=== PATIENT | male | born 1940 | race African-American/Black ===

== ENCOUNTER 2020-05-28 15:43 | Inpatient (IN) ==
[2020-05-28] MEDS ORDERED: SODIUM CHLORIDE 0.9% 1,000 ML IV STA (16:20)
[2020-05-28 16:43] LABS: Basophils % 0.4 % (0.0-0.8); Eosinophils % 0.2 % (0.00-10.9); Hematocrit 39.1 VOL% (42.0-52.0); Hemoglobin 12.6 GM/DL (14.0-18.0); Immature Granulocytes % 0.4 %; Immature Granulocytes Absolute 0.02 #; Lymphocytes # 1.4 10*3/uL (1.4-4.0); Lymphocytes % 24.2 % (21.2-54.2); Mean Corpuscular HGB Conc 32.2 GM/DL (32-36); Mean Corpuscular Volume 87.5 FL (87-102); Mean Platelet Volume 10.7 FL (9.6-12.0); Monocytes % 7.1 % (1.7-12.7); Neutrophils % 67.7 % (38.7-73.9); Platelet Count 218 T/CUMM (130-400); Red Blood Count 4.47 MC/CUMM (3.8-5.5); Red Cell Distribution Width 15.4 % (9.3-17.3); White Blood Count 5.7 T/CUMM (4-12)
[2020-05-28 16:50] LABS: INR 1.2; PT Patient Result 13.1 SECS (9.8-11.9); Partial Thromboplastin Time 26.5 SECS (23.9-33.8)
[2020-05-28 17:05] LABS: Albumin 3.5 G/DL (3.4-5.0); Bilirubin,Total 0.8 MG/DL (0.2-1.0); Calcium 9.2 MG/DL (8.5-10.1); Osmolality,Calculated 315.9 MOS/KG (273-304)
[2020-05-28] MEDS ORDERED: LORazepam 2 MG/1 ML VIAL IV STA (17:29)
[2020-05-28] MEDS ORDERED: LORazepam 2 MG/1 ML VIAL ONE (17:30)
[2020-05-28] MEDS ORDERED: HALOPERIDOL 5 MG/ML AMP IM STA ×2 (17:45→19:57)
[2020-05-28 18:00] LABS: Bilirubin,Urine Negative (Negative); Blood, Urine Large mg/dL (Negative); Glucose,Urine (UA) Negative (Negative); Hyaline Casts,Urine 6 /LPF (0-3); Ketones,Urine 20 mg/dL (Negative); Mucus,Urine Occasional /LPF (Occasional); Nitrite,Urine Negative (Negative); Protein,Urine 100 MG/DL; RBC,Urine 1893 /HPF (0-4); Squamous Epithelial Cell,Urine Occasional /HPF (0-10); Urine Appearance Slightly Hazy (Clear); Urine Color Amber (Yellow); Urine Specific Gravity 1.025 (1.001-1.035)
[2020-05-28] MEDS ORDERED: POTASSIUM CHLORIDE INJ 10 MEQ in SODIUM CHLORIDE 0.45% 1,000 ML IV SCH (18:30)
[2020-05-28] MEDS ORDERED: GLUCAGON 1 MG VIAL IM PRN (18:47)
[2020-05-28] MEDS ORDERED: DEXTROSE 50% 25 GM/50 ML VIAL IV PRN (18:47)
[2020-05-28] MEDS ORDERED: DEXTROSE 5% 1,000 ML IV SCH (19:00)
[2020-05-28] MEDS ORDERED: ENOXAPARIN 40 MG/0.4 ML SYRINGE SUBCUT SCH (21:00)
[2020-05-28] MEDS: BENZTROPINE 0.5 MG TABLET PO SCH ×2 (23:25→23:30)
[2020-05-28] MEDS: busPIRone 5 MG TABLET PO SCH ×2 (23:25→23:29)
[2020-05-29] MEDS ORDERED: INFLUENZA VIRUS VACCINE 0.5 ML SYRINGE IM ONE (00:47)
[2020-05-29 05:45] LABS: Basophils % 0.3 % (0.0-0.8); Hematocrit 44.3 VOL% (42.0-52.0); Hemoglobin 14.1 GM/DL (14.0-18.0); Immature Granulocytes % 0.3 %; Immature Granulocytes Absolute 0.03 #; Lymphocytes # 1.6 10*3/uL (1.4-4.0); Lymphocytes % 14.1 % (21.2-54.2); Mean Corpuscular HGB Conc 31.8 GM/DL (32-36); Mean Corpuscular Volume 89.1 FL (87-102); Mean Platelet Volume 10.8 FL (9.6-12.0); Monocytes % 5.9 % (1.7-12.7); Neutrophils % 79.4 % (38.7-73.9); Platelet Count 192 T/CUMM (130-400); Red Blood Count 4.97 MC/CUMM (3.8-5.5); Red Cell Distribution Width 15.4 % (9.3-17.3); White Blood Count 11.1 T/CUMM (4-12)
[2020-05-29 05:54] LABS: Calcium 9.5 MG/DL (8.5-10.1); Osmolality,Calculated 314.2 MOS/KG (273-304)
[2020-05-29] MEDS: DEXTROSE 5% 1,000 ML IV SCH ×2 (10:12→21:23)
[2020-05-29] MEDS: busPIRone 5 MG TABLET PO SCH ×2 (10:12→21:24)
[2020-05-29] MEDS: QUEtiapine XR 50 MG TABLET PO SCH (10:12)
[2020-05-29] MEDS: BENZTROPINE 0.5 MG TABLET PO SCH ×2 (10:12→21:24)
[2020-05-29] MEDS ORDERED: METOPROLOL TARTRATE 5 MG/5 ML VIAL IV ONE (10:17)
[2020-05-29] MEDS ORDERED: TUBERCULIN SKIN TEST 0.1 ML SYRINGE INTRADERM ONE (10:19)
[2020-05-29] MEDS: HALOPERIDOL 5 MG/ML AMP IV PRN ×2 (10:37→17:33)
[2020-05-29] MEDS ORDERED: LORazepam 2 MG/1 ML VIAL IV ONE ×2 (12:50→23:10)
[2020-05-29] MEDS ORDERED: HALOPERIDOL 5 MG/ML AMP IV ONE (12:51)
[2020-05-29] MEDS ORDERED: diphenhydrAMINE 50 MG/1 ML VIAL IV ONE (12:51)
[2020-05-29] MEDS: NICOTINE 21 MG/24 HR PATCH TRANSDERM SCH (12:57)
[2020-05-29] MEDS: cefTRIAXone 1,000 MG in SYRINGE 1 EACH IV SCH (21:24)
[2020-05-30] MEDS: hydrALAZINE 20 MG/1 ML VIAL IV PRN (03:43)
[2020-05-30] MEDS: HALOPERIDOL 5 MG/ML AMP IV PRN (03:45)
[2020-05-30 05:59] LABS: Basophils % 0.3 % (0.0-0.8); Eosinophils % 0.4 % (0.00-10.9); Hematocrit 41.8 VOL% (42.0-52.0); Hemoglobin 13.7 GM/DL (14.0-18.0); Immature Granulocytes % 0.5 %; Immature Granulocytes Absolute 0.04 #; Lymphocytes # 1.6 10*3/uL (1.4-4.0); Mean Corpuscular HGB Conc 32.8 GM/DL (32-36); Mean Corpuscular Volume 86.9 FL (87-102); Mean Platelet Volume 10.8 FL (9.6-12.0); Monocytes % 5.5 % (1.7-12.7); Neutrophils % 72.3 % (38.7-73.9); Platelet Count 148 T/CUMM (130-400); Red Blood Count 4.81 MC/CUMM (3.8-5.5); Red Cell Distribution Width 15.1 % (9.3-17.3); White Blood Count 7.7 T/CUMM (4-12)
[2020-05-30 06:12] LABS: Calcium 9.6 MG/DL (8.5-10.1); Osmolality,Calculated 296.3 MOS/KG (273-304)
[2020-05-30] MEDS: POTASSIUM CHLORIDE RIDER 10 MEQ in PREMIX 1 EACH IV PRN (07:36)
[2020-05-30] MEDS: BENZTROPINE 0.5 MG TABLET PO SCH ×2 (08:38→21:17)
[2020-05-30] MEDS: busPIRone 5 MG TABLET PO SCH ×2 (08:38→21:17)
[2020-05-30] MEDS: THIAMINE 100 MG TABLET PO SCH (08:38)
[2020-05-30] MEDS: NICOTINE 21 MG/24 HR PATCH TRANSDERM SCH (08:39)
[2020-05-30] MEDS: MULTIVITAMIN LIQUID (CENTRUM) 60 ML BOTTLE NG SCH (08:40)
[2020-05-30] MEDS: QUEtiapine XR 50 MG TABLET PO SCH (08:40)
[2020-05-30] MEDS: QUEtiapine 100 MG TABLET PO SCH (08:54)
[2020-05-30] MEDS ORDERED: POTASSIUM PHOSPHATE 30 MMOL in SODIUM CHLORIDE 0.9% 250 ML IV ONE (09:30)
[2020-05-30] MEDS: DEXTROSE 5% 1,000 ML IV SCH ×2 (10:44→17:01)
[2020-05-30] MEDS: cefTRIAXone 1,000 MG in SYRINGE 1 EACH IV SCH (21:18)
[2020-05-31 06:06] LABS: Basophils % 0.2 % (0.0-0.8); Eosinophils % 0.6 % (0.00-10.9); Hematocrit 35.4 VOL% (42.0-52.0); Hemoglobin 11.8 GM/DL (14.0-18.0); INR 1.1; Immature Granulocytes % 0.5 %; Immature Granulocytes Absolute 0.03 #; Lymphocytes # 1.9 10*3/uL (1.4-4.0); Lymphocytes % 28.9 % (21.2-54.2); Mean Corpuscular HGB Conc 33.3 GM/DL (32-36); Mean Corpuscular Volume 85.1 FL (87-102); Mean Platelet Volume 11.5 FL (9.6-12.0); Monocytes % 6.9 % (1.7-12.7); Neutrophils % 62.9 % (38.7-73.9); PT Patient Result 11.4 SECS (9.8-11.9); Platelet Count 112 T/CUMM (130-400); Red Blood Count 4.16 MC/CUMM (3.8-5.5); Red Cell Distribution Width 14.6 % (9.3-17.3); White Blood Count 6.5 T/CUMM (4-12)
[2020-05-31 06:22] LABS: Calcium 8.5 MG/DL (8.5-10.1)
[2020-05-31 06:32] LABS: Hypochromasia 1+; Microcytosis 1+; Platelet Estimate Decreased
[2020-05-31] MEDS: POTASSIUM CHLORIDE RIDER 10 MEQ in PREMIX 1 EACH IV PRN ×2 (07:58→17:23)
[2020-05-31] MEDS ORDERED: LACTATED RINGERS 1,000 ML IV SCH (08:00)
[2020-05-31] MEDS ORDERED: LIDOCAINE 2% 5 ML VIAL ONE (09:00)
[2020-05-31] MEDS ORDERED: propofoL 200 MG/20 ML VIAL IV ONE (09:00)
[2020-05-31] MEDS ORDERED: PHENYLEPHRINE 1 MG/10 ML SYRINGE IV ONE (09:00)
[2020-05-31] MEDS: BENZTROPINE 0.5 MG TABLET PO SCH ×2 (09:30→22:12)
[2020-05-31] MEDS: busPIRone 5 MG TABLET PO SCH ×2 (09:30→22:11)
[2020-05-31] MEDS: THIAMINE 100 MG TABLET PO SCH (09:30)
[2020-05-31] MEDS: QUEtiapine 100 MG TABLET PO SCH (09:30)
[2020-05-31] MEDS: NICOTINE 21 MG/24 HR PATCH TRANSDERM SCH (09:31)
[2020-05-31] MEDS: POTASSIUM CHLORIDE RIDER 10 MEQ in PREMIX 1 EACH IV SCH ×3 (09:31→14:45)
[2020-05-31] MEDS: DEXTROSE 5% 1,000 ML IV SCH ×2 (12:06→22:20)
[2020-05-31] MEDS: MULTIVITAMIN LIQUID (CENTRUM) 60 ML BOTTLE NG SCH (13:43)
[2020-05-31] MEDS: HALOPERIDOL 5 MG/ML AMP IV PRN (19:53)
[2020-05-31] MEDS: cefTRIAXone 1,000 MG in SYRINGE 1 EACH IV SCH (22:10)
[2020-06-01] MEDS: HALOPERIDOL 5 MG/ML AMP IV PRN ×2 (04:10→21:08)
[2020-06-01 06:19] LABS: Calcium 9.2 MG/DL (8.5-10.1); Osmolality,Calculated 273.7 MOS/KG (273-304)
[2020-06-01 07:06] LABS: Basophils % 0.4 % (0.0-0.8); Eosinophils # 0.1 10*3/uL (0.0-0.87); Hematocrit 33.3 VOL% (42.0-52.0); Hemoglobin 11.3 GM/DL (14.0-18.0); Immature Granulocytes % 0.4 %; Immature Granulocytes Absolute 0.02 #; Lymphocytes # 1.5 10*3/uL (1.4-4.0); Lymphocytes % 30.3 % (21.2-54.2); Mean Corpuscular HGB Conc 33.9 GM/DL (32-36); Mean Corpuscular Volume 83.7 FL (87-102); Mean Platelet Volume 11.5 FL (9.6-12.0); Monocytes % 7.5 % (1.7-12.7); Neutrophils % 60.4 % (38.7-73.9); Platelet Count 98 T/CUMM (130-400); Red Blood Count 3.98 MC/CUMM (3.8-5.5); Red Cell Distribution Width 14.5 % (9.3-17.3); White Blood Count 5.1 T/CUMM (4-12)
[2020-06-01 07:46] LABS: Polychromasia Slight; Schistocytes Few
[2020-06-01 07:47] LABS: Ovalocytes Few; Platelet Estimate Adequate
[2020-06-01 07:48] LABS: Hypochromasia 3+; Microcytosis 1+
[2020-06-01] MEDS ORDERED: POTASSIUM CHLORIDE 20 MEQ/15 ML UDCUP PO ONE ×2 (08:00→13:30)
[2020-06-01] MEDS: busPIRone 5 MG TABLET PO SCH ×2 (08:18→21:07)
[2020-06-01] MEDS: QUEtiapine 100 MG TABLET PO SCH (09:59)
[2020-06-01] MEDS: NICOTINE 21 MG/24 HR PATCH TRANSDERM SCH (10:00)
[2020-06-01] MEDS: THIAMINE 100 MG TABLET PO SCH (10:00)
[2020-06-01] MEDS: BENZTROPINE 0.5 MG TABLET PO SCH ×2 (10:00→21:08)
[2020-06-01] MEDS: MULTIVITAMIN LIQUID (CENTRUM) 60 ML BOTTLE NG SCH (10:40)
[2020-06-01] MEDS: DEXTROSE 5% 1,000 ML IV SCH (13:16)
[2020-06-01] MEDS ORDERED: ZIPRASIDONE 20 MG/1 ML VIAL IM ONE (19:12)
[2020-06-01] MEDS: cefTRIAXone 1,000 MG in SYRINGE 1 EACH IV SCH (21:05)
[2020-06-01] MEDS: POTASSIUM CHLORIDE 20 MEQ/15 ML UDCUP PO SCH (21:07)
[2020-06-02] MEDS ORDERED: ZIPRASIDONE 20 MG/1 ML VIAL IM PRN (01:06)
[2020-06-02] MEDS: QUEtiapine 100 MG TABLET PO SCH ×3 (09:22→20:00)
[2020-06-02] MEDS: POTASSIUM CHLORIDE 20 MEQ/15 ML UDCUP PO SCH ×2 (09:22→20:00)
[2020-06-02] MEDS: THIAMINE 100 MG TABLET PO SCH (09:23)
[2020-06-02] MEDS: busPIRone 5 MG TABLET PO SCH ×2 (09:23→20:01)
[2020-06-02] MEDS: BENZTROPINE 0.5 MG TABLET PO SCH ×2 (09:23→20:01)
[2020-06-02] MEDS: hydrALAZINE 20 MG/1 ML VIAL IV PRN (09:24)
[2020-06-02] MEDS: MULTIVITAMIN LIQUID (CENTRUM) 60 ML BOTTLE NG SCH (09:25)
[2020-06-02] MEDS: NICOTINE 21 MG/24 HR PATCH TRANSDERM SCH (09:25)
[2020-06-02] MEDS ORDERED: LORazepam 2 MG/1 ML VIAL IV ONE (11:54)
[2020-06-02] MEDS ORDERED: HALOPERIDOL 5 MG/ML AMP IV ONE (11:55)
[2020-06-02] MEDS: HALOPERIDOL 5 MG/ML AMP IV PRN (12:13)
[2020-06-02] MEDS: cefTRIAXone 1,000 MG in SYRINGE 1 EACH IV SCH (20:00)
[2020-06-03] MEDS: busPIRone 5 MG TABLET PO SCH ×2 (09:17→20:07)
[2020-06-03] MEDS: POTASSIUM CHLORIDE 20 MEQ/15 ML UDCUP PO SCH ×2 (09:18→20:07)
[2020-06-03] MEDS: QUEtiapine 100 MG TABLET PO SCH ×2 (09:18→20:07)
[2020-06-03] MEDS: MULTIVITAMIN LIQUID (CENTRUM) 60 ML BOTTLE NG SCH (09:18)
[2020-06-03] MEDS: THIAMINE 100 MG TABLET PO SCH (09:18)
[2020-06-03] MEDS: BENZTROPINE 0.5 MG TABLET PO SCH ×2 (09:18→20:07)
[2020-06-03] MEDS: NICOTINE 21 MG/24 HR PATCH TRANSDERM SCH (09:18)
[2020-06-03] MEDS: cefTRIAXone 1,000 MG in SYRINGE 1 EACH IV SCH (20:00)
[2020-06-04 05:36] LABS: Eosinophils # 0.1 10*3/uL (0.0-0.87); Eosinophils % 2.2 % (0.00-10.9); Hematocrit 31.1 VOL% (42.0-52.0); Hemoglobin 10.3 GM/DL (14.0-18.0); Immature Granulocytes % 0.2 %; Immature Granulocytes Absolute 0.01 #; Lymphocytes # 1.7 10*3/uL (1.4-4.0); Lymphocytes % 41.6 % (21.2-54.2); Mean Corpuscular HGB Conc 33.1 GM/DL (32-36); Monocytes % 11.5 % (1.7-12.7); Neutrophils % 43.5 % (38.7-73.9); Red Blood Count 3.66 MC/CUMM (3.8-5.5); Red Cell Distribution Width 14.7 % (9.3-17.3); White Blood Count 4.2 T/CUMM (4-12)
[2020-06-04 05:51] LABS: Platelet Count 147 T/CUMM (130-400)
[2020-06-04 05:57] LABS: Calcium 9.4 MG/DL (8.5-10.1); Eosinophils 3 % (0-10); Hypochromasia 1+; Lymphocytes 45 % (20-55); Microcytosis Slight; Osmolality,Calculated 281.1 MOS/KG (273-304); Platelet Estimate Adequate; Segmented Neutrophils 44 % (50-85); Total Cells Counted 100
[2020-06-04] MEDS ORDERED: amLODIPine 5 MG TABLET PO SCH (09:00)
[2020-06-04] MEDS: busPIRone 5 MG TABLET PO SCH (11:14)
[2020-06-04] MEDS: POTASSIUM CHLORIDE 20 MEQ/15 ML UDCUP PO SCH (11:14)
[2020-06-04] MEDS: QUEtiapine 100 MG TABLET PO SCH (11:15)
[2020-06-04] MEDS: THIAMINE 100 MG TABLET PO SCH (11:15)
[2020-06-04] MEDS: BENZTROPINE 0.5 MG TABLET PO SCH (11:15)
[2020-06-04] MEDS: NICOTINE 21 MG/24 HR PATCH TRANSDERM SCH (11:16)
[2020-06-04] MEDS: MULTIVITAMIN LIQUID (CENTRUM) 60 ML BOTTLE NG SCH (13:24)
[2020-06-04 16:09] VITALS: BP 138/95
== END 2020-06-04 16:48 | DRG 640 ==
LOC: EDBD → EDUNIT# → N.ED 15:43 → N.EDINP 18:47 → SUATTDRO 18:47 → N.3E 20:55 → UNDODISIN 06-04 16:42
PROVIDERS: ADMIT Internal Medicine; ATTEND Internal Medicine Geriatric Medicine
PROC: EGDWPEG (ICD-10-PCS; 2020-05-31 11:05)